=== PATIENT | male | born 1945 | race Two or more races ===

== ENCOUNTER → 2020-06-30 08:12 | Outpatient (BNVA) | payer MEDICARE, SELFPAY | PROVIDERS: Visit Provider Physician Assistant | DX: E66.9 Obesity, unspecified (principal); Z98.84 Bariatric surgery status | CPT/HCPCS: Q3014 ==

== ENCOUNTER → 2020-08-04 08:10 | Outpatient (BNVA) | payer MEDICARE, SELFPAY | PROVIDERS: Visit Provider Dietitian, Registered ==

== ENCOUNTER → 2020-09-09 08:13 | Outpatient (BNVA) | payer MEDICARE, SELFPAY | PROVIDERS: Visit Provider Physician Assistant | DX: Z13.89 Encounter for screening for other disorder (principal) | CPT/HCPCS: Q3014 ==

== ENCOUNTER → 2020-09-17 09:02 | Outpatient (REF) | payer MEDICARE, SELFPAY ==
--- NOTE | 2020-09-17 09:40 | ECG_ITS ---
Hook-up date: 2020-09-17 09:26:00 Duration: 47:59:00 Test Indications: dizziness Medications: 39498 QRS complexes 236 Ventricular ectopics which represent <1 % of total QRS comp. 148 Supraventricular ectopics which represent <1 % of total QRS comp. * Paced QRS complexs which represent % of total QRS comp. VENTRICULAR ECTOPY 222 Isolated 0 Bigeminal Cycles 7 Couplets 0 Runs 0 Beats in Runs * Beats LONGEST at * BPM at :: -- * Beats FASTEST at * BPM at :: -- SUPRAVENTRICULAR ECTOPY 148 Isolated 0 Couplets 0 Runs 0 Beats in Runs * Beats LONGEST at * BPM at :: -- * Beats FASTEST at * BPM at :: -- HEART RATES 54 MIN at 21:59:29 2020-09-17 57 AVG 98 MAX at 08:08:04 2020-09-18 LONGEST RR 1.5600 secs at 13:59:00 2020-09-17 S-T LEVELS Channel 1 - 128 mm at 09:26:00 2020-09-17 - 128 mm at 09:26:00 2020-09-17 Channel 2 - 128 mm at 09:26:00 2020-09-17 - 128 mm at 09:26:00 2020-09-17 Channel 3 - 128 mm at 02:84:51 -- - 128 mm at 02:84:51 Basic rhythm Normal sinus rhythm No long pause or profound bradycardia Frequent Sinus bradycardia Occasional Premature ventricular complexes / Premature atrial complexes Patient did not report any symptoms in the diary Referred By: Morris Newell Overread By: MORRIS NEWELL MD
== END ==
LOC: HO.CARD 09:02
PROVIDERS: PCP Physician Assistant; Visit Provider Internal Medicine Cardiovascular Disease
DX: I25.10 Atherosclerotic heart disease of native coronary artery without angina pectoris (principal); R42 Dizziness and giddiness
CPT/HCPCS: 93225; 93226

== ENCOUNTER → 2020-10-05 09:34 | Outpatient (BNVA) | payer MEDICARE, SELFPAY | PROVIDERS: PCP Physician Assistant; Visit Provider Internal Medicine Cardiovascular Disease | DX: I25.10 Atherosclerotic heart disease of native coronary artery without angina pectoris (principal); I10 Essential (primary) hypertension; Z79.899 Other long term (current) drug therapy | CPT/HCPCS: 93005; 99212 ==

== ENCOUNTER → 2020-11-18 08:11 | Outpatient (BNVA) | payer MEDICARE, SELFPAY | PROVIDERS: PCP Physician Assistant; Visit Provider Physician Assistant | DX: E66.3 Overweight (principal); Z98.84 Bariatric surgery status | CPT/HCPCS: Q3014 ==

== ENCOUNTER 2020-12-07 08:16 | Outpatient (REF) | payer MEDICARE, SELFPAY ==
[2020-12-07 09:48] LABS: MANUAL DIFF FLAG NO
[2020-12-07 09:54] LABS: Basophils Percent Auto 0.8 % (0-2); Eosinophils Absolute Auto 0.2 X10*3/uL (0.0-0.4); Eosinophils Percent Auto 3.3 % (0-4); Hematocrit 42.4 % (42-52); Hemoglobin 13.6 g/dl (14.0-18.0); Imm Gran Abs Auto 0.01 X10*3/uL (0.00-0.03); Imm Gran Pct Auto 0.2 % (0.0-0.4); Lymphocytes Absolute Auto 1.8 X10*3/uL (1.2-4.9); Lymphocytes Percent Auto 35.9 % (20-40); Mean Corpuscular HGB Conc 32.1 g/dl (31.0-36.0); Mean Corpuscular Volume 87.4 fL (80-98); Mean Platelet Volume 10.1 fL (9.4-12.4); Monocytes Absolute Auto 0.4 X10*3/uL (0.1-1.2); Neutrophils Absolute Auto 2.5 X10*3/uL (2.0-8.3); Neutrophils Percent Auto 51.8 % (45-73); Platelet Count 190 X10*3/uL (160-400); Red Blood Count 4.85 X10*6/uL (4.60-5.80); White Blood Count 4.9 X10*3/uL (4.8-10.8)
[2020-12-07 10:20] LABS: Alanine Aminotransferase 20 U/L (0-40); Alkaline Phosphatase 37 U/L (39-117); Anion Gap 12 (12-20); Aspartate Amino Transferase 16 U/L (5-37); Bilirubin Total 0.7 mg/dL (0.0-1.0); Blood Urea Nitrogen 15 mg/dL (9-16); Calcium 9.5 mg/dL (8.4-10.2); Carbon Dioxide 32 mmol/L (22-29); Chloride 100 mmol/L (96-108); Cholesterol 163 mg/dL; Estimated Glomerular Filt Rate > 60; Glucose Random 134 mg/dL (60-115); HDL Cholesterol 54 mg/dL; Iron 128 mcg/dL (45-160); LDL Cholesterol Calculated 73 mg/dl; Percent Iron Saturation 38 % (15-50); Sodium 140 mmol/L (135-145); Total Iron Binding Capacity 341 mcg/dL (228-428); Total Protein 6.4 g/dL (6.5-8.0); Triglycerides 181 mg/dL; Unsaturated Iron Binding 213 ug/dL
[2020-12-07 10:30] LABS: Estimated Average Glucose 171 mg/dL; Hemoglobin A1c % 7.6 %
[2020-12-07 10:35] LABS: Ferritin 76 ng/mL (20-250); TSH reflex Free T4 2.74 uIU/mL (0.32-4.0); Vitamin D 25-OH Total 53.7 ng/mL (>30)
[2020-12-07 11:19] LABS: Folate 17.8 ng/mL (> or = 4.0); Vitamin B12 912 pg/mL (200-900)
[2020-12-09 10:07] LABS: Calcium (PTHI) 9.6 mg/dL (8.6-10.3); PTHI 63 pg/mL (14-64)
[2020-12-09 19:02] LABS: Insulin Level Total 5.9 uIU/mL
[2020-12-10 06:21] LABS: Zinc 99 mcg/dL (60-130)
[2020-12-10 14:02] LABS: Vitamin B1 16 nmol/L (8-30)
[2020-12-11 17:32] LABS: Vitamin A 52 mcg/dL (38-98)
== END 2020-12-07 08:17 | disposition home or self-care (01) ==
LOC: HO.LAB 08:16
PROVIDERS: PCP Physician Assistant; Visit Provider Physician Assistant
DX: E66.3 Overweight (principal); Z98.84 Bariatric surgery status
CPT/HCPCS: 36415; 80053; 80061; 82306; 82607; 82728; 82746; 83036; 83525; 83540; 83970; 84425; 84443; 84590; 84630; 85025; 86140

== ENCOUNTER → 2021-02-14 13:37 | Outpatient (BNVA) | payer MEDICARE, SELFPAY | PROVIDERS: PCP Physician Assistant; Visit Provider Physician Assistant | DX: Z13.89 Encounter for screening for other disorder (principal) | CPT/HCPCS: 99212 ==

== ENCOUNTER → 2021-03-30 08:36 | Outpatient (BNVA) | payer MEDICARE, SELFPAY | PROVIDERS: PCP Physician Assistant; Visit Provider Dietitian, Registered | DX: E66.9 Obesity, unspecified (principal); Z68.31 Body mass index [BMI] 31.0-31.9, adult | CPT/HCPCS: 97803 ==

== ENCOUNTER → 2021-07-11 08:12 | Outpatient (BNVA) | payer MEDICARE, SELFPAY | PROVIDERS: PCP Physician Assistant; Visit Provider Physician Assistant | DX: Z13.89 Encounter for screening for other disorder (principal) | CPT/HCPCS: Q3014 ==

== ENCOUNTER 2023-06-20 13:40 | Outpatient (AMB) | payer MEDICARE, SELFPAY ==
--- NOTE | 2023-06-20 13:35 | A.OFFVIS_ITS ---
Intake VS Expanded 06/20/23 14:25 BP 158/70 H Blood Pressure Location Rt brachial Blood Pressure Position Sitting Pulse 63 Pulse Source Pulse Oximeter Temp 96.8 F Temperature Source Tympanic Pulse Oximetry 95 Oxygen Delivery Method Room Air Height 5 ft 3 in Intake Visit Reasons: (OV) POM LSG 02/2018 Allergies MIKI Inhibitors [MIKI INHIBITORS] Allergy (Unknown, Unverified 06/20/23 14:14) COUGH ARB-Angiotensin Receptor Antagonist [ARB-ANGIOTENSIN RECEPTOR ANTAGONIST] Allergy (Unknown, Unverified 06/20/23 14:14) HIVES sulfamethoxazole [From BACTRIM] Allergy (Unknown, Unverified 06/20/23 14:14) HIVES trimethoprim [From BACTRIM] Allergy (Unknown, Unverified 06/20/23 14:14) HIVES Medication List - Last Reconciled 06/20/23 by Mariya Mendiola PA-C alpha lipoic acid 200 mg PO DAILY [Centrum MVI PO] clopidogrel 75 mg PO DAILY escitalopram oxalate 10 mg PO DAILY glyburide 5 mg PO DAILY hydrochlorothiazide 25 mg PO QAM magnesium 250 mg PO DAILY metformin 1,000 mg PO BID omeprazole 20 mg PO BID rosuvastatin 5 mg PO DAILY sitagliptin phosphate (Januvia) 50 mg PO DAILY HPI HPI Comments History of Present Illness Details 77 yo man now 5+ years s/p LSG at [facility]. L ast appt was Jun 2021 when he weighed 190 lbs, lowest weight was 155 lbs. Patient is now in a wheelchair for last 2-3 years due to balance issues. Pt is here due to weight gain - BS - fasting 150 - 160 Meal plan - wakes at 8 am and bed at 4pm in bed due to back pain coffee 1 cup with diet sugar and whole milk 9am - cereal with whole milk OR 1-2 scra mbled eggs OR a sandwich 12 pm - coffee and a sandwich with crack ers 4pm - rice and chicken or fish. vegetabl es 1-2 d/ week. coffee with crackers while laying in bed. Post op complications: none GRADY: never DM : restarted on meds HTN: restarted Hyperlipidemia: still on meds GERD: 0, on meds Satisfaction with present condition - satisfied [facility] Medical History CAD (coronary artery disease) Arthritis History of CVA (cerebrovascular accident) Hyperlipidemia Hypertension Type II diabetes mellitus Surgical History Hx of cholecystectomy Knee joint replacement by other means S/P laparoscopic sleeve gastrectomy History of esophagogastroduodenoscopy (EGD) Family History Father Liver disease Mother Cancer Assessment & Plan Assessment & Plan (1) S/P laparoscopic sleeve gastrectomy: Comment: Feb 2018 Code(s): Z98.84 - Bariatric surgery status Plan: Pt can not be weighed today, he states he is unable to get out of his wheelchair with out his walker. He will try to weigh himself at home with a walker -, if not he will call us for weight check here with a walker. Meal plan: coffee in am 9am - 30 gram shake 12:pm 30 gram shake 4pm - 4 oz protein, 4 oz vegetable (every day), and 1 serving fruit No cracker, rice or coffee after 12 pm. We did not discuss exercise today. He will let his doctor know if his fasting blood sugars go below 100 - will need medication dose change. All instructions written down for patient. Will have follow up with Carla in 4-5 weeks, post op labs ordered Appt with me in 1 year Patient is obese and is not considered stable at this time. I spent 30 minutes in total with patient reviewing/updating records, examining the patient and c ounseling the patient on weight management as detailed above. (2) Hypertension: Code(s): I10 - Essential (primary) hypertension Plan: stay on present meds (3) Type II diabetes mellitus: Code(s): E11.9 - Type 2 diabetes mellitus without complications Plan: call doctor haley blood sugars are below 100 in am. Orders: Orders Complete Blood Count Auto Diff Today E11.9 - Type 2 diabetes mellitus without complications, E66.9 - Obesity, unspecified, E78.5 - Hyperlipidemia, unspecified, I10 - Essential (primary) hypertension, Z98.84 - Bariatric surgery status Vitamin B12 and Folate Today E11.9 - Type 2 diabetes mellitus without complications, E66.9 - Obesity, unspecified, E78.5 - Hyperlipidemia, unspecified, I10 - Essential (primary) hypertension, Z98.84 - Bariatric surgery status Vitamin B1 Today E11.9 - Type 2 diabetes mellitus without complications, E66.9 - Obesity, unspecified, E78.5 - Hyperlipidemia, unspecified, I10 - Essential (primary) hypertension, Z98.84 - Bariatric surgery status Ferritin Today E11.9 - Type 2 diabetes mellitus without complications, E66.9 - Obesity, unspecified, E78.5 - Hyperlipidemia, unspecified, I10 - Essential (primary) hypertension, Z98.84 - Bariatric surgery status Vitamin D 25-OH Total Today E11.9 - Type 2 diabetes mellitus without complications, E66.9 - Obesity, unspecified, E78.5 - Hyperlipidemia, unspecified, I10 - Essential (primary) hypertension, Z98.84 - Bariatric surgery status Insulin Today E11.9 - Type 2 diabetes mellitus without complications, E66.9 - Obesity, unspecified, E78.5 - Hyperlipidemia, unspecified, I10 - Essential (primary) hypertension, Z98.84 - Bariatric surgery status Hemoglobin A1c Today E11.9 - Type 2 diabetes mellitus without complications, E66.9 - Obesity, unspecified, E78.5 - Hyperlipidemia, unspecified, I10 - Essential (primary) hypertension, Z98.84 - Bariatric surgery status Lipid Panel Today E11.9 - Type 2 diabetes mellitus without complications, E66.9 - Obesity, unspecified, E78.5 - Hyperlipidemia, unspecified, I10 - Essential (primary) hypertension, Z98.84 - Bariatric surgery status IRON PROFILE Today E11.9 - Type 2 diabetes mellitus without complications, E66.9 - Obesity, unspecified, E78.5 - Hyperlipidemia, unspecified, I10 - Essential (primary) hypertension, Z98.84 - Bariatric surgery status Comprehensive Met. Panel Today E11.9 - Type 2 diabetes mellitus without complications, E66.9 - Obesity, unspecified, E78.5 - Hyperlipidemia, unspecified, I10 - Essential (primary) hypertension, Z98.84 - Bariatric surgery status Zinc Today E11.9 - Type 2 diabetes mellitus without complications, E66.9 - Ob esity, unspecified, E78.5 - Hyperlipidemia, unspecified, I10 - Essential (primary) hypertension, Z98.84 - Bariatric surgery status C Reactive Protein Today E11.9 - Type 2 diabetes mellitus without complications, E66.9 - Obesity, unspecified, E78.5 - Hyperlipidemia, unspecified, I10 - Essential (primary) hypertension, Z98.84 - Bariatric surgery status Vitamin A Today E11.9 - Type 2 diabetes mellitus without complications, E66.9 - Obesity, unspecified, E78.5 - Hyperlipidemia, unspecified, I10 - Essential (primary) hypertension, Z98.84 - Bariatric surgery status TSH reflex Free T4 Today E11.9 - Type 2 diabetes mellitus without complications, E66.9 - Obesity, unspecified, E78.5 - Hyperlipidemia, unspecified, I10 - Essential (primary) hypertension, Z98.84 - Bariatric surgery status Coding Level of Care Code Est Pt Level 4 (24782) Diagnoses S/P laparoscopic sleeve gastrectomy Z98.84 Hypertension I10 Type II diabetes mellitus E11.9
[2023-06-20 14:25] VITALS: BP 158/70; PULSE 63; TEMP 36; O2SAT 95
== END 2023-06-20 14:56 | disposition home or self-care (01) ==
PROVIDERS: PCP Physician Assistant; Visit Provider Physician Assistant
DX: R63.5 Abnormal weight gain (principal); Z90.3 Acquired absence of stomach [part of]; Z98.84 Bariatric surgery status; I10 Essential (primary) hypertension; E11.9 Type 2 diabetes mellitus without complications
CPT/HCPCS: 99214

== ENCOUNTER → 2023-06-20 13:40 | Outpatient (BNVA) | payer MEDICARE, SELFPAY | PROVIDERS: PCP Physician Assistant; Visit Provider Physician Assistant | DX: I10 Essential (primary) hypertension (principal); E11.9 Type 2 diabetes mellitus without complications; Z98.84 Bariatric surgery status | CPT/HCPCS: 99212 ==

== ENCOUNTER 2023-07-18 13:18 | Outpatient (AMB) | payer MEDICARE, SELFPAY ==
--- NOTE | 2023-07-18 13:33 | MHC.AMNUTRGE ---
Intake Intake Visit Reasons: (OV) POM LSG 02/2018 Loading Checker Required: No Allergies MIKI Inhibitors [MIKI INHIBITORS] Allergy (Unknown, Unverified 06/20/23 14:14) COUGH ARB-Angiotensin Receptor Antagonist [ARB-ANGIOTENSIN RECEPTOR ANTAGONIST] Allergy (Unknown, Unverified 06/20/23 14:14) HIVES sulfamethoxazole [From BACTRIM] Allergy (Unknown, Unverified 06/20/23 14:14) HIVES trimethoprim [From BACTRIM] Allergy (Unknown, Unverified 06/20/23 14:14) HIVES HPI Nutrition Presentation Details 5+ [place] [facility] [place] Last appt was Jun 2021 when he weighed 190 lbs, lowest weight was 155 lbs. Patient is now in a wheelchair for last 2-3 years due to balance issues. Reason for consult elevated BMI Diet Assmnt Details Pt states he would like help with weight loss. Is unable to weigh himself but states clothing fits tighter. I don't know why i gained weight breakfast and lunch he does not eat at home. he eats at a facility call [facility]. breakfast eats cereal with whole milk but eggs are available every morning lunch varies - egg or sandwich 3pm protein shake dinner - cookes protein and vegetables or starchy veg ,, she only reads/speaks [place]. He drinks juice and coffee with creamer and sugar all day, no water. We did not have time today to address vitamins, blood sugar control, or balancing plate Dietary counseling reduction Who buys your food spouse Who prepares/cooks your food spouse Diagnosis Nutrition problem #1 inadequate protein energy As related to (etiology) #1 unsure how to apply info As evidenced by (sign/symptom) #1 food recall, knowledge deficit of diet and verbalize inaccurate info Monitoring/Goals Nutrition problem monitoring total energy intake, level of knowledge/skill, total PRO intake, total CHO intake and weight Learning/Education Readiness to learn good Stages of change action Most Recent Diabetes Results: Cholesterol 163 mg/dL 12/07/20 HDL Cholesterol 54 mg/dL 12/07/20 Triglycerides 181 mg/dL 12/07/20 Creatinine 0.67 mg/dL (0.5-1.4) 12/07/20 Blood Urea Nitrogen 15 mg/dL (9-16) 12/07/20 Sodium 140 mmol/L (135-145) 12/07/20 Potassium 4.0 mmol/L (3.3-5.1) 12/07/20 Chloride 100 mmol/L (96-108) 12/07/20 Carbon Dioxide 32 mmol/L (22-29) H 12/07/20 Calcium 9.5 mg/dL (8.4-10.2) 12/07/20 AST 16 U/L (5-37) 12/07/20 ALT 20 U/L (0-40) 12/07/20 Total Protein 6.4 g/dL (6.5-8.0) L 12/07/20 Albumin 4.0 g/dL (3.5-5.0) 12/07/20 [facility] Medical History CAD (coronary artery disease) Arthritis History of CVA (cerebrovascular accident) Hyperlipidemia Hypertension Type II diabetes mellitus Surgical History Hx of cholecystectomy Knee joint replacement by other means S/P laparoscopic sleeve gastrectomy History of esophagogastroduodenoscopy (EGD) Family History Father Liver disease Mother Cancer Assessment & Plan Assessment & Plan (1) S/P laparoscopic sleeve gastrectomy: Comment: Feb 2018 Code(s): Z98.84 - Bariatric surgery status Plan: nutrition follow up 08/28 at 1:30pm Patient Instructions: Receptive to cutting back on juice intake. educated on food sources of protein and we talked about trying to prioritize protein and focusing on adding fiber and protein rich foods to meals at [facility]. Educated on the benefits of balancing meals with protein and fiber but will need reiteration . Coding Level of Care Code Nutr Indiv Subseq (79916) Diagnoses S/P laparoscopic sleeve gastrectomy Z98.84 Time Spent (min) 30
== END 2023-07-18 13:53 | disposition home or self-care (01) ==
PROVIDERS: PCP Physician Assistant; Visit Provider Dietitian, Registered
DX: Z98.84 Bariatric surgery status (principal)

== ENCOUNTER → 2023-07-18 13:18 | Outpatient (BNVA) | payer MEDICARE, SELFPAY | PROVIDERS: PCP Physician Assistant; Visit Provider Dietitian, Registered | DX: Z98.84 Bariatric surgery status (principal) | CPT/HCPCS: 97803 ==

== ENCOUNTER 2023-09-04 13:10 | Outpatient (AMB) | payer MEDICARE, SELFPAY ==
--- NOTE | 2023-09-04 13:29 | A.OFFVIS_ITS ---
Intake VS Expanded 09/04/23 16:25 Height 5 ft 3 in Weight 209 lb BMI 37.0 Intake Visit Reasons: (OV) POM LSG 02/2018 Tool Grinder Operator Required: No Allergies MIKI Inhibitors [MIKI INHIBITORS] Allergy (Unknown, Unverified 06/20/23 14:14) COUGH ARB-Angiotensin Receptor Antagonist [ARB-ANGIOTENSIN RECEPTOR ANTAGONIST] Allergy (Unknown, Unverified 06/20/23 14:14) HIVES sulfamethoxazole [From BACTRIM] Allergy (Unknown, Unverified 06/20/23 14:14) HIVES trimethoprim [From BACTRIM] Allergy (Unknown, Unverified 06/20/23 14:14) HIVES HPI Nutrition Presentation Details 5+ years s/p LSG at [facility] [place]. Last appt was D 2020 when he weighed 190 lbs, lowest weight was 155 lbs. Patient is now in a wheelchair for last 2-3 years due to balance issues. Weight today on wheelchair scale but without scooter. pt able to ambulate Reason for consult elevated BMI Unstable SDH Reports transportation (uses transportation assistance - [facility]) Diet Assmnt Details Pt reports drinking 2 cartons of juice per day and 4 cups of coffee with about 12 tbsp of creamer/milk and stevia. Pt eats breakfast and lunch at [facility] facility. Meals change daily - typical breakfast and lunch foods. Sometimes has fruit with breakfast. Pt sometimes does not enjoy all of the meal and eats only the protein. At home his makes the meals and he eats protein, starchy carbs, and veggies. Says he enjoys some beans and rice occasionally. His blood sugars usually run in the 130's which pt states is his normal and he is happy with. He has not experiences any lows. Taking centrum . he reports he got his labs done elsewhere. we have not received the faxed results. Pt thinks weight has gone down a little since clothes are fitting slightly better. breakfast and lunch he does not eat at home. he eats at a facility called [facility]. breakfast eats cereal with whole milk but eggs are available every morning lunch varies - egg or sandwich 3pm protein shake dinner - cookes protein and vegetables or starchy veg ,, she only reads/speaks [place]. - gave recipe books last appt in [place] Dietary counseling reduction Who buys your food spouse Who prepares/cooks your food spouse Diagnosis Nutrition problem #1 inadequate protein energy As related to (etiology) #1 unsure how to apply info As evidenced by (sign/symptom) #1 food recall, knowledge deficit of diet and verbalize inaccurate info Monitoring/Goals Nutrition problem monitoring total energy intake, level of knowledge/skill, total PRO intake, total CHO intake and weight Learning/Education Readiness to learn good Stages of change action Most Recent Diabetes Results: Cholesterol 163 mg/dL 12/07/20 HDL Cholesterol 54 mg/dL 12/07/20 Triglycerides 181 mg/dL 12/07/20 Creatinine 0.67 mg/dL (0.5-1.4) 12/07/20 Blood Urea Nitrogen 15 mg/dL (9-16) 12/07/20 Sodium 140 mmol/L (135-145) 12/07/20 Potassium 4.0 mmol/L (3.3-5.1) 12/07/20 Chloride 100 mmol/L (96-108) 12/07/20 Carbon Dioxide 32 mmol/L (22-29) H 12/07/20 Calcium 9.5 mg/dL (8.4-10.2) 12/07/20 AST 16 U/L (5-37) 12/07/20 ALT 20 U/L (0-40) 12/07/20 Total Protein 6.4 g/dL (6.5-8.0) L 12/07/20 Albumin 4.0 g/dL (3.5-5.0) 12/07/20 [facility] Medical History CAD (coronary artery disease) Arthritis History of CVA (cerebrovascular accident) Hyperlipidemia Hypertension Type II diabetes mellitus Surgical History Hx of cholecystectomy Knee joint replacement by other means S/P laparoscopic sleeve gastrectomy History of esophagogastroduodenoscopy (EGD) Family History Father Liver disease Mother Cancer Assessment & Plan Assessment & Plan (1) S/P laparoscopic sleeve gastrectomy: Comment: Feb 2018 Code(s): Z98.84 - Bariatric surgery status (2) Obesity (BMI 30-39.9): Code(s): E66.9 - Obesity, unspecified Plan Discussed the amount of extra calories pt is consuming in liquids and encouraged patient to drink only half of his juice boxes and cut down from 3 to 2 tbsp of creamer in his coffee each day. Discussed the difficulties of obesity regarding weight loss and keeping it off, explaining the increased hunger and decreased metabolism that comes with weight loss.?Discussed talking to adult health clinical nurse specialist about GLP-1 medication to assist with type II diabetes and weight loss.?will f/u in 1 MO 10/01 at 2:30pm . Pt arranges for transportation with [facility] Coding Level of Care Code Nutr Indiv Subseq (86339) Diagnoses S/P laparoscopic sleeve gastrectomy Z98.84 Obesity (BMI 30-39.9) E66.9 Time Spent (min) 30
[2023-09-04 16:25] VITALS: BMI 37.0
== END 2023-09-04 14:27 | disposition home or self-care (01) ==
PROVIDERS: PCP Physician Assistant; Visit Provider Dietitian, Registered
DX: Z98.84 Bariatric surgery status (principal); E66.9 Obesity, unspecified

== ENCOUNTER → 2023-09-04 13:10 | Outpatient (BNVA) | payer MEDICARE, SELFPAY | PROVIDERS: PCP Physician Assistant; Visit Provider Dietitian, Registered | DX: E66.9 Obesity, unspecified (principal); Z98.84 Bariatric surgery status; Z68.37 Body mass index [BMI] 37.0-37.9, adult | CPT/HCPCS: 97803 ==

== ENCOUNTER 2023-09-05 13:19 | Outpatient (AMB) | payer MEDICARE, SELFPAY ==
--- NOTE | 2023-09-05 13:32 | MHC.OFFVIS ---
Intake Intake Visit Reasons: 2nd opinion R buttock pain Insurance Compliance Analyst Required: No Allergies MIKI Inhibitors [MIKI INHIBITORS] Allergy (Unknown, Unverified 06/20/23 14:14) COUGH ARB-Angiotensin Receptor Antagonist [ARB-ANGIOTENSIN RECEPTOR ANTAGONIST] Allergy (Unknown, Unverified 06/20/23 14:14) HIVES sulfamethoxazole [From BACTRIM] Allergy (Unknown, Unverified 06/20/23 14:14) HIVES trimethoprim [From BACTRIM] Allergy (Unknown, Unverified 06/20/23 14:14) HIVES [facility] Medical History CAD (coronary artery disease) Arthritis History of CVA (cerebrovascular accident) Hyperlipidemia Hypertension Type II diabetes mellitus Surgical History Hx of cholecystectomy Knee joint replacement by other means S/P laparoscopic sleeve gastrectomy History of esophagogastroduodenoscopy (EGD) Family History Father Liver disease Mother Cancer Assessment & Plan Assessment & Plan (1) Degenerative scoliosis: Code(s): M41.50 - Other secondary scoliosis, site unspecified Plan Dear colleague, Thank you for referring Barry to our office today. He is a pleasant 77-year-old male who comes in today with a chief complaint of low back pain with radiation into his bilateral legs. He reports no inciting incident, and reports his back pain has slowly worsened as the years have progressed. He reports associated symptoms of numbness/tingling diffusely throughout his legs that is intermittent and waxing/waning. He states that over the course of last 2 years he has slowly lost the ability to ambulate on his own. He has been trying to seek care from [facility], and has had several injections there with only minimal relief. He also has gone to physical therapy but found it was not helpful. He currently is taking Tylenol to help alleviate his pain. He also reports that lying down helps to alleviate his pain. He reports that trying to stand aggravates his pain. He reports that he is now at the point where his low back pain and shooting leg pain affects his ability to complete his activities of daily living, makes it so we can not sleep, he can not walk, and is now riding an electric scooter to get around. He reports only really moving off his electric scooter to do transfers to his bed, toilet, or couch. PMH: On chronic anticoagulation (clopidogrel) but unsure why. High blood pressure, type 2 diabetes (reports last A1c was just over 8), GERD, osteoarthritis, hyperlipidemia. Social hx: Patient does not smoke, reports no substance use. Medications: Januvia, rosuvastatin, omeprazole, metformin, magnesium, hydrochlorothiazide, glyburide, escitalopram, clopidogrel, multivitamin. Allergies: MIKI inhibitor, Arb, Bactrim. Physical exam: The patient is diffusely weak throughout his lower extremities with 4/5 strength. His upper extremities are 5/5. He reports sensational deficits as described above. He has intermittent waxing/waning numbness and tingling diffusely throughout his lower extremities. The rest of his upper body sensation is grossly intact. His lower extremity reflexes are 1+ hypoactive (possibly confounded by performing his exam while he was on his scooter). His upper extremity reflexes are 2+ intact. (-) Odonnell's. The patient reports he has extreme difficulty rising from a seated position and was sitting in his electric scooter for the duration of this encounter. Imaging review: MRI of the lumbar spine completed at [facility] shows levoscoliosis of the lumbar spine from L1-S1 with the apex at L1-2. He has diffuse significant spondylosis of the lumbar spine there is severe foraminal stenosis at L1-2 and moderate central canal stenosis at L1-2. From L2-S1 there is severe central canal and bilateral foraminal stenosis. Impression: Barry is a pleasant 77-year-old male who comes in today with a chief complaint of progressively worsening low back pain with radiculopathy into his bilateral lower extremities. He is unable to pinpoint a dermatomal distribution for his leg pain, and states it is relatively diffuse. His pain has gotten to the point where he is unable to walk and relies on an electric scooter to get around. His imaging is consistent with a progressively degenerative levoscoliosis, which is causing severe central canal stenosis in his lumbar spine. We discussed what a surgical intervention for scoliosis correction would entail, and went in to extensive detail about the postoperative healing course in the expected outcomes. If we were to pursue scoliosis correction the goal of surgery would be for pain reduction. It is not possible to say that he would have return of function of his lower extremities to the point where he would be able to walk again. He reported that he does not feel as though he is ready for surgery at this time and would like to discuss this with his and will get back to our office. Thank you for allowing us to care for your patient. The total time spent with this visit with this patient was 55 minutes reviewing history, physical exam, MRI imaging review, and implementation of treatment plan or further diagnostic testing Laz Gutierrez MD,PhD [facility] Coding Level of Care Code New Pt Level 4 (49168) Diagnoses Degenerative scoliosis M41.50
== END 2023-09-05 14:19 | disposition home or self-care (01) ==
PROVIDERS: PCP Physician Assistant; Referring Provider Physical Medicine & Rehabilitation; Visit Provider Physician Assistant
DX: M41.50 Other secondary scoliosis, site unspecified (principal)
CPT/HCPCS: 99204

== ENCOUNTER → 2023-09-05 13:19 | Outpatient (BNVA) | payer MEDICARE, SELFPAY | PROVIDERS: PCP Physician Assistant; Visit Provider Physician Assistant | DX: M54.50 Low back pain, unspecified (principal); M41.50 Other secondary scoliosis, site unspecified | CPT/HCPCS: 99202 ==

== ENCOUNTER 2023-10-10 13:15 | Outpatient (AMB) | payer MEDICARE, SELFPAY ==
--- NOTE | 2023-10-10 13:17 | MHC.AMNUTRGE ---
Intake VS Expanded 10/10/23 14:13 Height 5 ft 3 in Weight 216 lb BMI 38.3 Intake Visit Reasons: (OV) POM [facility] 02/2018 Patient Placement Coordinator Required: No Allergies MIKI Inhibitors [MIKI INHIBITORS] Allergy (Unknown, Unverified 06/20/23 14:14) COUGH ARB-Angiotensin Receptor Antagonist [ARB-ANGIOTENSIN RECEPTOR ANTAGONIST] Allergy (Unknown, Unverified 06/20/23 14:14) HIVES sulfamethoxazole [From BACTRIM] Allergy (Unknown, Unverified 06/20/23 14:14) HIVES trimethoprim [From BACTRIM] Allergy (Unknown, Unverified 06/20/23 14:14) HIVES HPI Nutrition Presentation Details 5+ years s/p LSG at [facility]. Last appt was Jun 2021 when he weighed 190 lbs, lowest weight was 155 lbs. Patient is now in a wheelchair for last 2-3 years due to balance issues. Weight today on wheelchair scale but without scooter. pt able to ambulate Reason for consult elevated BMI Unstable SDH Reports transportation (uses transportation assistance - [facility]) Diet Assmnt Details Goals from last nutrition visit were to cut back on juices, drink more water, increase protein at each meal, add in vegetables. He seems to have met goals established at each appt based on his report. However, weight check today shows a7# gain. This was not discussed today. He stopped drinking juice, coffee has cut back to only 2 cups per day. Drinking water during the whole day now. Pt eats breakfast and lunch [facility]. Meals change daily - typical breakfast and lunch foods. Sometimes has fruit with breakfast, states he tries to choose eggs. Pt sometimes does not enjoy all of the meal and eats only the protein. At home his makes the meals and he eats protein, starchy carbs, and veggies. Says he enjoys some beans and rice occasionally. His blood sugars usually run in the 130's which pt states is his normal and he is happy with. He has not experiences any lows. Taking centrum Dietary counseling reduction Who buys your food spouse Who prepares/cooks your food spouse Diagnosis Nutrition problem #1 inadequate protein energy As related to (etiology) #1 unsure how to apply info As evidenced by (sign/symptom) #1 food recall, knowledge deficit of diet and verbalize inaccurate info Monitoring/Goals Nutrition problem monitoring total energy intake, level of knowledge/skill, total PRO intake, total CHO intake and weight Learning/Education Readiness to learn good Stages of change action Most Recent Diabetes Results: No Data to Display [facility] Medical History CAD (coronary artery disease) Arthritis History of CVA (cerebrovascular accident) Hyperlipidemia Hypertension Type II diabetes mellitus Surgical History Hx of cholecystectomy Knee joint replacement by other means S/P laparoscopic sleeve gastrectomy History of esophagogastroduodenoscopy (EGD) Family History Father Liver disease Mother Cancer Assessment & Plan Assessment & Plan (1) S/P laparoscopic sleeve gastrectomy: Comment: Feb 2018 Code(s): Z98.84 - Bariatric surgery status Plan Pt will continue f/u with PA and encouraged communication as needed in the meantime. Coding Level of Care Code Nutr Indiv Subseq (45401) Diagnoses S/P laparoscopic sleeve gastrectomy Z98.84 Time Spent (min) 25
[2023-10-10 14:13] VITALS: BMI 38.3
== END 2023-10-10 14:13 | disposition home or self-care (01) ==
PROVIDERS: PCP Physician Assistant; Visit Provider Dietitian, Registered
DX: Z98.84 Bariatric surgery status (principal)

== ENCOUNTER → 2023-10-10 13:15 | Outpatient (BNVA) | payer MEDICARE, SELFPAY | PROVIDERS: PCP Physician Assistant; Visit Provider Dietitian, Registered | DX: E11.9 Type 2 diabetes mellitus without complications (principal); Z71.3 Dietary counseling and surveillance; Z98.84 Bariatric surgery status | CPT/HCPCS: 97803 ==

== ENCOUNTER 2023-12-19 13:04 | Outpatient (AMB) | payer MEDICARE, SELFPAY ==
--- NOTE | 2023-12-19 13:25 | A.OFFVIS_ITS ---
VS Expanded 12/19/23 13:34 BP 135/65 Blood Pressure Location Rt brachial Blood Pressure Position Sitting Pulse 91 Pulse Source Pulse Oximeter Temp 96.1 F L Temperature Source Tympanic Pulse Oximetry 95 Oxygen Delivery Method Room Air Height 5 ft 3 in Weight 209 lb BMI 37.0 Intake Visit Reasons: (OV) P[place] [facility] [place] Allergies MIKI Inhibitors [MIKI INHIBITORS] Allergy (Unknown, Unverified 12/19/23 13:35) COUGH ARB-Angiotensin Receptor Antagonist [ARB-ANGIOTENSIN RECEPTOR ANTAGONIST] Allergy (Unknown, Unverified 12/19/23 13:35) HIVES sulfamethoxazole [From BACTRIM] Allergy (Unknown, Unverified 12/19/23 13:35) HIVES trimethoprim [From BACTRIM] Allergy (Unknown, Unverified 12/19/23 13:35) HIVES Medication List - Last Reconciled 12/19/23 by ANGELICA Becerra alpha lipoic acid 200 mg PO DAILY [Centrum MVI PO] clopidogrel 75 mg PO DAILY escitalopram oxalate 10 mg PO DAILY glyburide 5 mg PO DAILY hydrochlorothiazide 25 mg PO QAM magnesium 250 mg PO DAILY metformin 1,000 mg PO BID omeprazole 20 mg PO BID rosuvastatin 5 mg PO DAILY sitagliptin phosphate (Januvia) 50 mg PO DAILY HPI Comments Details: This?is a?78?yo male who is s/p [facility] [place]. Weight loss of 7 lbs since last OV on 10/10/2023. No complaints of nausea, emesis, abdominal pain, or constipation. Takes omeprazole for occasional reflux, mostly at night after lying down/taking pills. Present meal plan includes: Pt eats breakfast and lunch at [facility] facility. Meals change daily - typical breakfast and lunch foods. Sometimes has fruit with breakfast, states he tries to choose eggs. Pt sometimes does not enjoy all of the meal and eats only the protein. At home his makes the meals and he eats protein, starchy carbs, and veggies. Says he enjoys some beans and rice occasionally. His blood sugars usually run in the 130's which pt states is his normal and he is happy with. He has not experiences any lows. Taking centrum. Able to do some chair exercises at adult day care. [facility] Medical History CAD (coronary artery disease) Arthritis History of CVA (cerebrovascular accident) Hyperlipidemia Hypertension Type II diabetes mellitus Surgical History Hx of cholecystectomy Knee joint replacement by other means S/P laparoscopic sleeve gastrectomy History of esophagogastroduodenoscopy (EGD) Family History Father Liver disease Mother Cancer Physical Exam Vital Signs: Last Vital Signs Temp 96.1 F L 12/19/23 13:34 Pulse 91 12/19/23 13:34 BP 135/65 12/19/23 13:34 Pulse Ox 95 12/19/23 13:34 Oxygen Delivery Method Room Air 12/19/23 13:34 BMI result Body Mass Index 37.0 Assessment & Plan Assessment & Plan (1) S/P laparoscopic sleeve gastrectomy: Comment: Feb 2018 Code(s): Z98.84 - Bariatric surgery status Category: Surgical (2) Obesity: Code(s): E66.9 - Obesity, unspecified Category: Medical Plan Pt doing well on current meal plan, lost 7lbs since last visit and trying to exercise in ways he is able. Has eliminated juice, drinking water. Continue same meal plan, prioritize protein. Pt motivated to continue weight loss. Will go today for previously ordered labs. RTC 6 weeks for accountability. Patient is obese and is not considered stable at this time. I spent a total of 30 minutes reviewing/updating records, examining the patient and counseling the patient on weight management as detailed above.
[2023-12-19 13:34] VITALS: BP 135/65; PULSE 91; TEMP 35.6; O2SAT 95; BMI 37.0
== END 2023-12-19 13:51 | disposition home or self-care (01) ==
PROVIDERS: PCP Physician Assistant; Visit Provider Physician Assistant Surgical
DX: E66.9 Obesity, unspecified (principal); Z68.37 Body mass index [BMI] 37.0-37.9, adult; Z90.3 Acquired absence of stomach [part of]; Z98.84 Bariatric surgery status
CPT/HCPCS: 99214

== ENCOUNTER 2023-12-19 13:04 | Outpatient (REF) | payer OTHER, SELFPAY ==
[2023-12-19 14:11] LABS: MANUAL DIFF FLAG NO
[2023-12-19 14:41] LABS: Basophils Percent Auto 0.4 % (0-2); Eosinophils Absolute Auto 0.1 X10*3/uL (0.0-0.4); Hematocrit 42.9 % (42.0-52.0); Hemoglobin 13.9 g/dl (14.0-18.0); Imm Gran Abs Auto 0.06 X10*3/uL (0.00-0.03); Imm Gran Pct Auto 0.6 % (0.0-0.4); Lymphocytes Absolute Auto 1.9 X10*3/uL (1.2-4.9); Lymphocytes Percent Auto 18.8 % (20-40); Mean Corpuscular HGB Conc 32.4 g/dl (31.0-36.0); Mean Corpuscular Hemoglobin 27.3 pg (27.0-33.0); Mean Corpuscular Volume 84.1 fL (80.0-98.0); Mean Platelet Volume 9.2 fL (9.4-12.4); Monocytes Absolute Auto 0.5 X10*3/uL (0.1-1.2); Monocytes Percent Auto 4.9 % (2-11); Neutrophils Absolute Auto 7.5 x10*3/uL (2.0-8.3); Neutrophils Percent Auto 74.3 % (45-73); Platelet Count 333 X10*3/uL (160-400); Red Cell Distribution Width 12.9 % (11.0-16.0)
[2023-12-19 14:50] LABS: Estimated Average Glucose 206 mg/dL; Hemoglobin A1c % 8.8 % (<6.0)
[2023-12-19 15:16] LABS: Alanine Aminotransferase 15 U/L (0-40); Alkaline Phosphatase 54 U/L (39-117); Anion Gap 14 (12-20); Aspartate Amino Transferase 17 U/L (5-37); Bilirubin Total 0.2 mg/dL (0.0-1.0); Blood Urea Nitrogen 22 mg/dL (9-16); C Reactive Protein 0.81 mg/dL (< or = 0.50); Calcium 10.2 mg/dL (8.4-10.2); Carbon Dioxide 29 mmol/L (22-29); Chloride 99 mmol/L (96-108); Cholesterol 171 mg/dL (<200); Estimated Glomerular Filt Rate > 60; Glucose Random 299 mg/dL (60-115); HDL Cholesterol 43 mg/dL (>40); Iron 66 mcg/dL (45-160); Percent Iron Saturation 19 % (15-50); Potassium 3.8 mmol/L (3.3-5.1); Sodium 138 mmol/L (135-145); Total Iron Binding Capacity 349 mcg/dL (228-428); Total Protein 7.3 g/dL (6.5-8.0); Triglycerides 482 mg/dL (<150); Unsaturated Iron Binding 283 ug/dL
[2023-12-19 15:42] LABS: Folate 15.2 ng/mL (> or = 4.0); Vitamin B12 782 pg/mL (200-900)
[2023-12-19 15:45] LABS: Ferritin 35 ng/mL (20-250); Insulin 32 uU/mL (2-29); TSH reflex Free T4 3.18 uIU/mL (0.32-4.0); Vitamin D 25-OH Total 54.6 ng/mL (>30)
[2023-12-22 18:47] LABS: Zinc 65 mcg/dL (60-130)
[2023-12-22 23:54] LABS: Vitamin A 54 mcg/dL (38-98)
[2023-12-25 16:27] LABS: Vitamin B1 43 nmol/L (8-30)
== END 2023-12-19 13:05 | disposition home or self-care (01) ==
LOC: HO.LAB 13:04
PROVIDERS: Absent Provider Physician Assistant; Visit Provider Physician Assistant Surgical
DX: E66.9 Obesity, unspecified (principal); E78.5 Hyperlipidemia, unspecified; I10 Essential (primary) hypertension; E11.9 Type 2 diabetes mellitus without complications; Z98.84 Bariatric surgery status; Z71.3 Dietary counseling and surveillance
CPT/HCPCS: 36415; 80053; 80061; 82306; 82607; 82728; 82746; 83036; 83525; 83540; 84425; 84443; 84590; 84630; 85025; 86140; 99212

== ENCOUNTER 2024-02-13 13:24 | Outpatient (AMB) | payer MEDICARE, SELFPAY ==
--- NOTE | 2024-02-13 13:26 | A.OFFVIS_ITS ---
VS Expanded 02/13/24 13:39 BP 122/62 Blood Pressure Location Lt brachial Blood Pressure Position Sitting Pulse 80 Pulse Source Pulse Oximeter Temp 96 F L Temperature Source Temporal Artery Scan Pulse Oximetry 96 Intake Visit Reasons: (OV) POM [facility] [place] 02/2018 Intake Note: WGT DEFERRED PT UNALBE TO TRANSFER OUT OF POWER CHAIR SAFELY TO SCALE - PROVIDER AWARE Hydraulics Engineer Required: No Allergies MIKI Inhibitors [MIKI INHIBITORS] Allergy (Unknown, Unverified 02/13/24 13:41) COUGH ARB-Angiotensin Receptor Antagonist [ARB-ANGIOTENSIN RECEPTOR ANTAGONIST] Allergy (Unknown, Unverified 02/13/24 13:41) HIVES sulfamethoxazole [From BACTRIM] Allergy (Unknown, Unverified 02/13/24 13:41) HIVES trimethoprim [From BACTRIM] Allergy (Unknown, Unverified 02/13/24 13:41) HIVES Medication List - Last Reconciled 02/13/24 by Ulises Johnson, RN alpha lipoic acid 200 mg PO DAILY [Centrum MVI PO] clopidogrel 75 mg PO DAILY escitalopram oxalate 10 mg PO DAILY glyburide 5 mg PO DAILY hydrochlorothiazide 25 mg PO QAM magnesium 250 mg PO DAILY metformin 1,000 mg PO BID omeprazole 20 mg PO BID rosuvastatin 5 mg PO DAILY sitagliptin phosphate (Januvia) 50 mg PO DAILY HPI Comments Details: This?is a?78?yo male who is s/p [facility] 02/2018. Unable to obtain weight today due to pt's instability in getting out of wheelchair. Having a bad day, reports it is due to leg weakness, recently had an injection in right knee for pain, has chronic neuropathy. Having a corneal operation next month. No complaints of nausea, emesis, abdominal pain, or constipation. Takes omeprazole for occasional reflux, mostly at night after lying down/taking pills. Blood sugars continue to run in 130-140s. Blood pressures have also been well controlled. Present meal plan includes: Pt eats breakfast and lunch at [facility]. Meals change daily - typical breakfast and lunch foods. Sometimes has fruit with breakfast, states he tries to choose eggs. Pt sometimes does not enjoy all of the meal and eats only the protein. At home his makes the meals and he eats protein, starchy carbs, and veggies. Says he enjoys some beans and rice occasionally. Taking centrum. Able to do some chair exercises at adult day care. Usually 3x/week. [facility] Medical History CAD (coronary artery disease) Arthritis History of CVA (cerebrovascular accident) Hyperlipidemia Hypertension Type II diabetes mellitus Surgical History Hx of cholecystectomy Knee joint replacement by other means S/P laparoscopic sleeve gastrectomy History of esophagogastroduodenoscopy (EGD) Family History Father Liver disease Mother Cancer Assessment & Plan Assessment & Plan (1) S/P laparoscopic sleeve gastrectomy: Comment: Feb 2018 Code(s): Z98.84 - Bariatric surgery status Category: Medical (2) Obesity: Code(s): E66.9 - Obesity, unspecified Category: Medical Plan No weight obtained today so unable to determine if pt has made progress with weight loss. He will keep same meal plan/exercise regimen and hopefully at next visit will be able to have weight obtained. RTC 2 months.
[2024-02-13 13:39] VITALS: BP 122/62; PULSE 80; TEMP 35.5; O2SAT 96
== END 2024-02-13 13:49 | disposition home or self-care (01) ==
PROVIDERS: PCP Physician Assistant; Visit Provider Physician Assistant Surgical
DX: E66.9 Obesity, unspecified (principal); Z68.37 Body mass index [BMI] 37.0-37.9, adult; Z90.3 Acquired absence of stomach [part of]; Z98.84 Bariatric surgery status
CPT/HCPCS: 99213

== ENCOUNTER → 2024-02-13 13:24 | Outpatient (BNVA) | payer MEDICARE, SELFPAY | PROVIDERS: PCP Physician Assistant; Visit Provider Physician Assistant Surgical | DX: E66.9 Obesity, unspecified (principal); Z98.84 Bariatric surgery status | CPT/HCPCS: 99212 ==

== ENCOUNTER 2024-07-29 13:00 | Outpatient (AMB) | payer MEDICARE, SELFPAY ==
--- NOTE | 2024-07-29 13:14 | MHC.OFFVISWM ---
VS Expanded 07/29/24 13:35 BP 168/75 H Blood Pressure Location Rt brachial Blood Pressure Position Sitting Pulse 86 Pulse Source Pulse Oximeter Temp 97.6 F Temperature Source Temporal Artery Scan Pulse Oximetry 96 Oxygen Delivery Method Room Air Comment unable to get weight. Intake Visit Reasons: (OV) PO [facility]G 02/2018 Allergies MIKI Inhibitors [MIKI INHIBITORS] Allergy (Unknown, Verified 07/29/24 13:36) COUGH ARB-Angiotensin Receptor Antagonist [ARB-ANGIOTENSIN RECEPTOR ANTAGONIST] Allergy (Unknown, Verified 07/29/24 13:36) HIVES sulfamethoxazole [From BACTRIM] Allergy (Unknown, Verified 07/29/24 13:36) HIVES trimethoprim [From BACTRIM] Allergy (Unknown, Verified 07/29/24 13:36) HIVES Medication List - Last Reconciled 07/29/24 by ANGELICA Becerra alpha lipoic acid 200 mg PO DAILY [Centrum MVI PO] clopidogrel 75 mg PO DAILY escitalopram oxalate 10 mg PO DAILY glyburide 5 mg PO DAILY hydrochlorothiazide 25 mg PO QAM magnesium 250 mg PO DAILY metformin 1,000 mg PO BID omeprazole 20 mg PO BID rosuvastatin 5 mg PO DAILY semaglutide (Ozempic) 0.5 mg subcut QWEEK HPI Comments Details: This is a 78 yo male who is s/p [facility] 02/2018. Unable to obtain weight at pt's last visit in 01/2024. Unable to obtain weight again today due to pt's instability with standing and scooter unable to fit on wheelchair scale. No complaints of nausea, emesis, abdominal pain, or constipation. Takes omeprazole for occasional reflux, mostly at night after lying down/taking pills. Blood sugars continue to run in 120-140s. At nighttime may get up to 200. Blood pressure high today. Takes HCTZ. Started Ozempic prescribed by PCP- 0.5mg. Planning to increase to 1mg in a few doses. Pt has not had a recent weight, but feels his clothes fit better. Eating smaller portions. Present meal plan includes: Pt eats breakfast [facility] lunch [facility]. Meals change daily - typical breakfast and lunch foods. Sometimes has fruit with breakfast, states he tries to choose eggs. Pt sometimes does not enjoy all of the meal and eats only the protein. At home his makes the meals and he eats protein, starchy carbs, and veggies. Says he enjoys some beans and rice occasionally. No protein shakes or protein bars. Taking centrum. Able to do some chair exercises at adult day care. Usually 3x/week. [facility] Medical History CAD (coronary artery disease) Arthritis History of CVA (cerebrovascular accident) Hyperlipidemia Hypertension Type II diabetes mellitus Surgical History Hx of cholecystectomy Knee joint replacement by other means S/P laparoscopic sleeve gastrectomy History of esophagogastroduodenoscopy (EGD) Family History Father Liver disease Mother Cancer Social History Alcohol intake: never Patient Tobacco Use Status: Never used Tobacco Assessment & Plan Assessment & Plan (1) Obese body habitus: Code(s): E66.9 - Obesity, unspecified Category: Medical (2) S/P laparoscopic sleeve gastrectomy: Comment: Feb 2018 Code(s): Z98.84 - Bariatric surgery status Category: Surgical Plan Pt will continue on Ozempic per PCP, tolerating well and he believes he is losing weight. We will try to get another accurate weight at next visit. He feels he is getting adequate protein intake, not using shakes or bars as he gets most of his food through program. RTC 6 months, will be due for labs then. I spent a total of 30 minutes reviewing/updating records, examining the patient and counseling the patient on weight management as detailed above.
[2024-07-29 13:35] VITALS: BP 168/75; PULSE 86; TEMP 36.4; O2SAT 96
== END 2024-07-29 14:00 | disposition home or self-care (01) ==
PROVIDERS: PCP Physician Assistant; Visit Provider Physician Assistant Surgical
DX: E66.9 Obesity, unspecified (principal); Z98.84 Bariatric surgery status
CPT/HCPCS: 99214; G2211

== ENCOUNTER → 2024-07-29 13:00 | Outpatient (BNVA) | payer MEDICARE, SELFPAY | PROVIDERS: PCP Physician Assistant; Visit Provider Physician Assistant Surgical | DX: E66.9 Obesity, unspecified (principal); Z71.3 Dietary counseling and surveillance; Z98.84 Bariatric surgery status | CPT/HCPCS: 99212 ==

== ENCOUNTER 2025-02-24 06:12 | Outpatient (REF) | payer OTHER, SELFPAY | END 2025-02-24 06:13 | disposition home or self-care (01) | LOC: HO.LAB 06:12 | PROVIDERS: PCP Family Medicine; Visit Provider Physician Assistant Surgical | DX: Z96.652 Presence of left artificial knee joint (principal) | CPT/HCPCS: 36415; 85652; 86140 ==